=== PATIENT | female | born 2000 | race Asian ===

== ENCOUNTER 2022-01-16 10:36 | Emergency (ER) | payer OTHER ==
[~2022-01-16] VITALS: Ht 157.5 cm; Wt 41.0 kg
[2022-01-16 10:47] VITALS: BP 123/53
[2022-01-16] MEDS ORDERED: TETANUS, DIPHTHERIA, PERTUSSIS VAC/PF 0.5ML (>10YR OLD) IM ONE (11:00)
[2022-01-16] MEDS ORDERED: LIDOCAINE HCL 1% 10 MG/ML 10ML VIAL IJ NR (11:00)
[2022-01-16] MEDS ORDERED: LIDOCAINE HCL/PF 1% 10 MG/ML 5ML VIAL INFIL ONE (11:00)
[2022-01-16] MEDS ORDERED: BACITRACIN ZINC OINT UDPKT TOP ONE (11:00)
== END 2022-01-16 13:43 | disposition home or self-care (01) ==
LOC: ER 10:36
DX: S01.81XA Laceration without foreign body of other part of head, initial encounter (principal); W18.39XA Other fall on same level, initial encounter; Y93.89 Activity, other specified; Y92.89 Other specified places as the place of occurrence of the external cause; Y99.8 Other external cause status
CPT/HCPCS: 12011; 70486; 81025; 90471; 90715; 99284; A4217; J3490; Z7610

== ENCOUNTER 2022-01-24 13:56 | Emergency (ER) | payer OTHER ==
[~2022-01-24] VITALS: Ht 157.5 cm; Wt 41.0 kg
[2022-01-24 14:36] VITALS: BP 117/76
== END 2022-01-24 14:45 | disposition home or self-care (01) ==
LOC: ER 13:56
DX: S01.81XD Laceration without foreign body of other part of head, subsequent encounter (principal); X58.XXXD Exposure to other specified factors, subsequent encounter; Z88.2 Allergy status to sulfonamides
CPT/HCPCS: 99281; Z7610